=== PATIENT | male | born 1965 | race Caucasian/White ===

== ENCOUNTER 2023-06-19 17:14 | Inpatient (IN) | payer MEDICAID ==
[~2023-06-19] VITALS: Ht 165.1 cm; Wt 48.1 kg
[2023-06-19] MEDS: ALBUTEROL (0.083%) 2.5MG/3ML NEB HHN STA (17:30)
[2023-06-19] MEDS: IPRATROPIUM BROMIDE (0.02%) 0.5MG/2.5ML NEB HHN STA (17:30)
[2023-06-19 17:31] VITALS: RESP 44
[2023-06-19] MEDS: SODIUM CHLORIDE 0.9% 1000ML BAG (SEPSIS BOLUS) IV ONE (17:43)
[2023-06-19] MEDS: MAGNESIUM 2 G PREMIX 50 ML IV ONE (17:53)
[2023-06-19] MEDS: METHYLPREDNISOLONE SOD SUCC 125MG/2ML (ACT-O-VIAL) IV STA (17:53)
[2023-06-19 18:40] LABS: BG BASE EXCESS -16.2 mmol/L (-2.0-2.0); BG CARBOXYHEMOGLOBIN 0.6 % (0.5-1.5); BG DEOXYHEMOGLOBIN 0.1 % (0.0-5.0); BG FRACTION INSPIRED OXYGEN 100; BG METHEMOGLOBIN 0.3 % (0.0-1.5); BG OXYGEN SATURATION 99.9 % (92.0-98.5); BG PCO2 25.2 mmHg (35.0-45.0); BG PH 7.218 (7.350-7.450); BG PO2 293.5 mmHg (75.0-100.0); BG SAMPLE SITE RIGHT BRACHIAL; BG TOTAL HEMOGLOBIN 8.6 g/dL (12.0-18.0); BG TOTAL RESPIRATORY RATE 43 b/min; BG VENT MODE MASK - BIPAP
[2023-06-19 18:48] LABS: MEAN CORPUSCULAR HEMOGLOBIN 24.3 pg (28.0-32.0); MEAN CORPUSCULAR VOLUME 83.9 fL (80.0-94.0); MEAN PLATELET VOLUME 9.3 fl (7.4-10.4); PLATELET 422 x1000/uL (130-400); RED BLOOD CELL COUNT 2.67 mill/uL (4.7-6.1); RED CELL DISTRIBUTION WIDTH 17.6 % (11.6-14.6); WHITE BLOOD COUNT 15.3 x1000/uL (4.5-11.0)
[2023-06-19 18:59] LABS: INR 1.1; PARTIAL THROMBOPLASTIN TIME 35.3 sec (23.4-31.0); PROTHROMBIN TIME 12.2 sec (9.6-11.0)
[2023-06-19 19:01] LABS: DIFFERENTIAL COMMENT 1
[2023-06-19 19:02] LABS: HEMATOCRIT. 22.4 % (42.0-52.0); HEMOGLOBIN. 6.5 g/dL (14.0-18.0)
[2023-06-19 19:03] LABS: ALANINE AMINOTRANSFERASE 13 IU/L (10-49); ALBUMIN 2.9 g/dL (3.2-4.8); ASPARTATE AMINOTRANSFERASE 17 IU/L (<34); BILIRUBIN TOTAL 0.2 mg/dL (0.1-1.0); CALCIUM 8.5 mg/dL (8.7-10.4); CARBON DIOXIDE 11 mEq/L (21-32); CHLORIDE 106 mEq/L (98-107); GLUCOSE 127 mg/dL (70-105); POTASSIUM 4.2 mEq/L (3.5-5.1); PROTEIN TOTAL 6.2 g/dL (6.0-8.3); SODIUM 134 mEq/L (136-145)
[2023-06-19 19:05] LABS: CREATININE 5.6 mg/dL (0.6-1.3); UREA NITROGEN BLOOD 110 mg/dL (9-23)
[2023-06-19 19:06] LABS: TROPONIN I HIGH SENSITIVITY 97 ng/L (3.0-53)
[2023-06-19] MEDS ORDERED: LEVOFLOXACIN 750MG PREMIX 150 ML IV ONE (19:15)
[2023-06-19 19:37] LABS: PLATELET ESTIMATE NORMAL
[2023-06-19 19:40] VITALS: RESP 52
[2023-06-19] MEDS: VANCOMYCIN 1G PREMIX 200 ML IV ONE (19:57)
[2023-06-19 22:18] LABS: TROPONIN I HIGH SENSITIVITY 116 ng/L (3.0-53)
[2023-06-19] MEDS: LEVOFLOXACIN 750MG PREMIX 150 ML IV NR (22:40)
[2023-06-19] MEDS: PROPOFOL 10MG/ML 100ML 100 ML IV STA (22:41)
[2023-06-19 22:53] VITALS: PULSE 111; RESP 16
[2023-06-19 23:31] LABS: BG BASE EXCESS -21.3 mmol/L (-2.0-2.0); BG CARBOXYHEMOGLOBIN 1.6 % (0.5-1.5); BG DEOXYHEMOGLOBIN 5.1 % (0.0-5.0); BG FRACTION INSPIRED OXYGEN 100; BG HCO3 ACT 10.6 mmol/L (22.0-26.0); BG METHEMOGLOBIN 0.4 % (0.0-1.5); BG OXYGEN SATURATION 94.8 % (92.0-98.5); BG OXYHEMOGLOBIN 92.9 % (94.0-97.0); BG PCO2 59.1 mmHg (35.0-45.0); BG PH 6.872 (7.350-7.450); BG PO2 112.3 mmHg (75.0-100.0); BG SAMPLE SITE LEFT RADIAL; BG TOTAL HEMOGLOBIN 7.2 g/dL (12.0-18.0); BG VENT MODE VENT - AC
[2023-06-19] MEDS: NOREPINEPHRINE 8MG/250ML PMX 250 ML IV NR (23:46)
[2023-06-20] VITALS (99 sets, daily range): BP systolic 86–125; BP diastolic 61–94; PULSE 90–111; RESP 11–37; TEMP 96.4–98.8
[2023-06-20] MEDS: SODIUM BICARBONATE 100 MEQ in DEXTROSE 5% WATER 1,000 ML IV SCH ×2 (01:38→11:49)
[2023-06-20] MEDS ORDERED: PROPOFOL 10MG/ML 100ML 100 ML IV PRN (03:30)
[2023-06-20] MEDS: SODIUM BICARBONATE 8.4% 1 MEQ/ML 50ML SYR IV NR (03:36)
[2023-06-20 05:39] LABS: BG BASE EXCESS -10.8 mmol/L (-2.0-2.0); BG CARBOXYHEMOGLOBIN 1.1 % (0.5-1.5); BG DEOXYHEMOGLOBIN 3.3 % (0.0-5.0); BG FRACTION INSPIRED OXYGEN 100; BG OXYGEN SATURATION 96.7 % (92.0-98.5); BG OXYHEMOGLOBIN 95.6 % (94.0-97.0); BG PCO2 54.7 mmHg (35.0-45.0); BG PH 7.134 (7.350-7.450); BG PO2 95.2 mmHg (75.0-100.0); BG SAMPLE SITE RIGHT RADIAL; BG TOTAL HEMOGLOBIN 9.2 g/dL (12.0-18.0); BG VENT MODE VENT - AC
[2023-06-20 08:48] LABS: CLARITY URINE CLOUDY (CLEAR); COLOR URINE YELLOW (YELLOW); GLUCOSE URINE TRACE (NEGATIVE); KETONES URINE NEGATIVE (NEGATIVE); LEUKOCYTE ESTERASE URINE 3+ (NEGATIVE); NITRITE URINE NEGATIVE (NEGATIVE); OCCULT BLOOD URINE 2+ (NEGATIVE); PH URINE 5.5 (4.5-8.0); PROTEIN URINE 1+ (NEGATIVE); UROBILINOGEN URINE 0.2 E.U./dL (0.2-1.0)
[2023-06-20] MEDS ORDERED: LEVOFLOXACIN 750MG PREMIX 150 ML IV NR (09:00)
[2023-06-20] MEDS: PROPOFOL 10MG/ML 100ML 100 ML IV PRN (09:07)
[2023-06-20 10:04] LABS: SQUAMOUS EPITHELIAL CELL URINE FEW /lpf (RARE/1+); WBC URINE TNTC /hpf (0-2)
[2023-06-20 10:05] LABS: BACTERIA URINE 1+; YEAST URINE NONE SEEN
[2023-06-20 10:24] LABS: HEMATOCRIT. 22.8 % (42.0-52.0); HEMOGLOBIN. 7.1 g/dL (14.0-18.0); MEAN CORPUSCULAR HEMOGLOBIN 25.4 pg (28.0-32.0); MEAN CORPUSCULAR HGB CONC 31.1 g/dL (31.0-37.0); MEAN CORPUSCULAR VOLUME 81.6 fL (80.0-94.0); MEAN PLATELET VOLUME 9.4 fl (7.4-10.4); PLATELET 399 x1000/uL (130-400); RED CELL DISTRIBUTION WIDTH 17.9 % (11.6-14.6); WHITE BLOOD COUNT 19.4 x1000/uL (4.5-11.0)
[2023-06-20 10:37] LABS: DIFFERENTIAL COMMENT 1
[2023-06-20] MEDS ORDERED: IPRATROPIUM/ALBUTEROL 0.5-3(2.5)MG/3ML NEB HHN PRN (10:45)
[2023-06-20 10:58] LABS: CALCIUM 8.6 mg/dL (8.7-10.4); CREATININE 4.5 mg/dL (0.6-1.3); POTASSIUM 3.6 mEq/L (3.5-5.1)
[2023-06-20] MEDS ORDERED: PANTOPRAZOLE SODIUM 40 MG/VIAL IV SCH (11:00)
[2023-06-20] MEDS: METHYLPREDNISOLONE SOD SUCC 125MG/2ML (ACT-O-VIAL) IV SCH (11:48)
[2023-06-20] MEDS: PANTOPRAZOLE SODIUM 40 MG/VIAL IV SCH (11:49)
[2023-06-20 14:11] LABS: ANISOCYTOSIS 1+; PLATELET ESTIMATE NORMAL; TARGET CELLS FEW
[2023-06-20] MEDS: IPRATROPIUM/ALBUTEROL 0.5-3(2.5)MG/3ML NEB HHN SCH (14:15)
[2023-06-20] MEDS: ACETYLCYSTEINE 200MG/ML 20% VIAL 4ML INH SCH (14:16)
[2023-06-20 16:53] LABS: *AMPHETAMINES SCREEN URINE NEGATIVE (NEGATIVE); *BARBITURATES SCREEN URINE NEGATIVE (NEGATIVE); *BENZODIAZEPINES SCREEN URINE NEGATIVE (NEGATIVE); *COCAINE SCREEN URINE NEGATIVE (NEGATIVE); CANNABINOID URINE SCREEN NEGATIVE (NEGATIVE); ECSTASY MDMA SCREEN URINE NEGATIVE (NEGATIVE); METHADONE URINE SCREEN Neg (NEGATIVE); OPIATES URINE SCREEN NEGATIVE (NEGATIVE); PHENCYCLIDINE URINE SCREEN NEGATIVE (NEGATIVE)
[2023-06-21] VITALS (79 sets, daily range): BP systolic 85–143; BP diastolic 57–81; PULSE 67–99; RESP 12–51; TEMP 97.7–99.2
[2023-06-21 05:48] LABS: HEMATOCRIT. 23.8 % (42.0-52.0); HEMOGLOBIN. 7.2 g/dL (14.0-18.0); MEAN CORPUSCULAR VOLUME 83.3 fL (80.0-94.0); MEAN PLATELET VOLUME 9.5 fl (7.4-10.4); PLATELET 271 x1000/uL (130-400); RED BLOOD CELL COUNT 2.86 mill/uL (4.7-6.1)
[2023-06-21 06:11] LABS: ALBUMIN 2.7 g/dL (3.2-4.8); CALCIUM 8.4 mg/dL (8.7-10.4); CARBON DIOXIDE 28 mEq/L (21-32); CHLORIDE 103 mEq/L (98-107); CREATININE 3.6 mg/dL (0.6-1.3); GLUCOSE 152 mg/dL (70-105); PHOSPHORUS 6.6 mg/dL (2.5-4.9); POTASSIUM 3.1 mEq/L (3.5-5.1); SODIUM 144 mEq/L (136-145); TRIGLYCERIDE 256 mg/dL (0-150); UREA NITROGEN BLOOD 93 mg/dL (9-23)
[2023-06-21 06:22] LABS: PREALBUMIN < 5.0 mg/dl (10.0-40.0)
[2023-06-21 06:27] LABS: PROTHROMBIN TIME 11.6 sec (9.6-11.0)
[2023-06-21 06:39] LABS: DIFFERENTIAL COMMENT 1
[2023-06-21 09:01] LABS: BG BASE EXCESS 4.2 mmol/L (-2.0-2.0); BG CARBOXYHEMOGLOBIN 0.3 % (0.5-1.5); BG DEOXYHEMOGLOBIN 1.5 % (0.0-5.0); BG FRACTION INSPIRED OXYGEN 70; BG HCO3 ACT 27.2 mmol/L (22.0-26.0); BG METHEMOGLOBIN 0.3 % (0.0-1.5); BG OXYGEN SATURATION 98.5 % (92.0-98.5); BG OXYHEMOGLOBIN 97.9 % (94.0-97.0); BG PCO2 34.1 mmHg (35.0-45.0); BG PO2 125.7 mmHg (75.0-100.0); BG SAMPLE SITE LEFT RADIAL; BG TOTAL HEMOGLOBIN 8.6 g/dL (12.0-18.0); BG TOTAL RESPIRATORY RATE 34 b/min; BG VENT MODE VENT - AC
[2023-06-21 09:32] LABS: CREATINE KINASE 41 IU/L (46-171); IRON 20 ug/dL (65-175); TOTAL IRON BINDING CAPACITY 286 ug/dl (250-425)
[2023-06-21] MEDS: LEVOFLOXACIN 500MG PREMIX 100 ML IV SCH (09:45)
[2023-06-21] MEDS: POTASSIUM CHLORIDE 20MEQ/PACKET PO NR (09:45)
[2023-06-21] MEDS: QUETIAPINE FUMARATE 25MG TABLET PO SCH (09:46)
[2023-06-21] MEDS: VANCOMYCIN 1G PREMIX 200 ML IV NR (09:48)
[2023-06-21] MEDS: DEXT 5%/0.45% NACL 1000ML 1,000 ML IV SCH (09:49)
[2023-06-21 11:57] LABS: ANISOCYTOSIS 2+; PLATELET ESTIMATE NORMAL
[2023-06-21] MEDS: PROPOFOL 10MG/ML 100ML 100 ML IV PRN (14:17)
[2023-06-22] VITALS (104 sets, daily range): BP systolic 90–167; BP diastolic 59–94; PULSE 58–122; RESP 14–34; TEMP 96.4–97.8
[2023-06-22] MEDS ORDERED: FENTANYL 2500MCG/250ML PMX 250 ML IV ONE (00:15)
[2023-06-22] MEDS: FENTANYL CITRATE 2,500 MCG in SODIUM CHLORIDE 0.9% 200 ML IV PRN (00:27)
[2023-06-22 05:39] LABS: MEAN CORPUSCULAR HEMOGLOBIN 25.7 pg (28.0-32.0); MEAN CORPUSCULAR HGB CONC 31.8 g/dL (31.0-37.0); MEAN CORPUSCULAR VOLUME 80.8 fL (80.0-94.0); MEAN PLATELET VOLUME 9.8 fl (7.4-10.4); PLATELET 281 x1000/uL (130-400); RED BLOOD CELL COUNT 2.42 mill/uL (4.7-6.1); RED CELL DISTRIBUTION WIDTH 18.2 % (11.6-14.6); WHITE BLOOD COUNT 9.9 x1000/uL (4.5-11.0)
[2023-06-22 05:54] LABS: CARBON DIOXIDE 29 mEq/L (21-32); CHLORIDE 106 mEq/L (98-107); GLUCOSE 197 mg/dL (70-105); PHOSPHORUS 4.6 mg/dL (2.5-4.9); POTASSIUM 2.9 mEq/L (3.5-5.1); SODIUM 145 mEq/L (136-145); TRIGLYCERIDE 328 mg/dL (0-150); UREA NITROGEN BLOOD 85 mg/dL (9-23)
[2023-06-22 05:56] LABS: CREATININE 2.4 mg/dL (0.6-1.3)
[2023-06-22 07:14] LABS: DIFFERENTIAL COMMENT 1; HEMOGLOBIN. 6.2 g/dL (14.0-18.0)
[2023-06-22 07:15] LABS: HEMATOCRIT. 19.6 % (42.0-52.0)
[2023-06-22 09:07] LABS: FOLIC ACID (FOLATE) SERUM 10.41 ng/mL (>5.38); VITAMIN B12 SERUM 949 pg/mL (211-911)
[2023-06-22 09:08] LABS: BG BASE EXCESS 0.7 mmol/L (-2.0-2.0); BG CARBOXYHEMOGLOBIN 1.7 % (0.5-1.5); BG DEOXYHEMOGLOBIN 3.7 % (0.0-5.0); BG FRACTION INSPIRED OXYGEN 40; BG HCO3 ACT 25.6 mmol/L (22.0-26.0); BG OXYGEN SATURATION 96.2 % (92.0-98.5); BG OXYHEMOGLOBIN 94.6 % (94.0-97.0); BG PCO2 42.1 mmHg (35.0-45.0); BG PH 7.401 (7.350-7.450); BG PO2 89.1 mmHg (75.0-100.0); BG SAMPLE SITE RIGHT RADIAL; BG TOTAL HEMOGLOBIN 6.7 g/dL (12.0-18.0); BG TOTAL RESPIRATORY RATE 500 b/min; BG VENT MODE VENT - AC
[2023-06-22] MEDS: PROPOFOL 10MG/ML 100ML 100 ML IV PRN (09:27)
[2023-06-22 09:45] LABS: MICROCYTOSIS 1+; PLATELET ESTIMATE NORMAL
[2023-06-22 09:46] LABS: ANISOCYTOSIS 2+
[2023-06-22] MEDS: VANCOMYCIN 750MG PREMIX 150 ML IV NR (10:40)
[2023-06-22] MEDS: POTASSIUM CHLORIDE 20MEQ TABLET SR PO NR (10:41)
[2023-06-22 11:45] LABS: HEMATOCRIT 22.4 % (42.0-52.0); HEMOGLOBIN 7.2 g/dL (14.0-18.0)
[2023-06-22] MEDS: LEVOFLOXACIN 750MG PREMIX 150 ML IV SCH (20:49)
[2023-06-23] VITALS (102 sets, daily range): BP systolic 91–128; BP diastolic 62–97; PULSE 50–82; RESP 18–26; TEMP 96.7–98.7
[2023-06-23 05:38] LABS: HEMATOCRIT. 23.2 % (42.0-52.0); HEMOGLOBIN. 7.1 g/dL (14.0-18.0); MEAN CORPUSCULAR HEMOGLOBIN 25.9 pg (28.0-32.0); MEAN CORPUSCULAR HGB CONC 30.4 g/dL (31.0-37.0); MEAN CORPUSCULAR VOLUME 85.3 fL (80.0-94.0); MEAN PLATELET VOLUME 9.7 fl (7.4-10.4); PLATELET 281 x1000/uL (130-400); RED BLOOD CELL COUNT 2.72 mill/uL (4.7-6.1); RED CELL DISTRIBUTION WIDTH 18.6 % (11.6-14.6); WHITE BLOOD COUNT 14.1 x1000/uL (4.5-11.0)
[2023-06-23 05:50] LABS: CALCIUM 7.9 mg/dL (8.7-10.4); CREATININE 1.8 mg/dL (0.6-1.3); POTASSIUM 3.4 mEq/L (3.5-5.1)
[2023-06-23 05:58] LABS: DIFFERENTIAL COMMENT 1
[2023-06-23 08:49] LABS: BG BASE EXCESS 5.2 mmol/L (-2.0-2.0); BG CARBOXYHEMOGLOBIN 1.1 % (0.5-1.5); BG DEOXYHEMOGLOBIN 3.1 % (0.0-5.0); BG FRACTION INSPIRED OXYGEN 40; BG HCO3 ACT 30.3 mmol/L (22.0-26.0); BG METHEMOGLOBIN 0.3 % (0.0-1.5); BG OXYGEN SATURATION 96.9 % (92.0-98.5); BG OXYHEMOGLOBIN 95.5 % (94.0-97.0); BG PCO2 47.3 mmHg (35.0-45.0); BG PH 7.425 (7.350-7.450); BG SAMPLE SITE RIGHT BRACHIAL; BG TOTAL HEMOGLOBIN 10.6 g/dL (12.0-18.0); BG VENT MODE VENT - AC
[2023-06-23] MEDS: POLYETHYLENE GLYCOL 3350 (17GM) 1 DOSE PACK NG SCH (09:00)
[2023-06-23] MEDS: POTASSIUM CHLORIDE 20MEQ/PACKET PO NR (09:00)
[2023-06-23] MEDS: VANCOMYCIN 1G PREMIX 200 ML IV SCH (11:06)
[2023-06-23] MEDS: PROPOFOL 10MG/ML 100ML 100 ML IV PRN (12:41)
[2023-06-23] MEDS ORDERED: MIDAZOLAM HCL 2 MG/2 ML VIAL IV PRN (13:30)
[2023-06-23] MEDS: DOCUSATE SODIUM SUGAR FREE 100MG/10ML UDC NG NR (14:46)
[2023-06-23 15:54] LABS: ANISOCYTOSIS 1+; PLATELET ESTIMATE NORMAL
[2023-06-23] MEDS: IRON SUCROSE COMPLEX 100 MG/5 ML ML IV SCH (15:56)
[2023-06-23] MEDS: MEROPENEM 1G/100ML 100 ML IV SCH (18:12)
[2023-06-23] MEDS: METHYLPREDNISOLONE SOD SUCC 125MG/2ML (ACT-O-VIAL) IV SCH (18:13)
[2023-06-24] VITALS (96 sets, daily range): BP systolic 93–168; BP diastolic 63–103; PULSE 49–108; RESP 17–40; TEMP 96.8–98.8; O2SAT 98–100
[2023-06-24 05:36] LABS: HEMATOCRIT. 27.9 % (42.0-52.0); MEAN CORPUSCULAR HEMOGLOBIN 27.2 pg (28.0-32.0); MEAN CORPUSCULAR HGB CONC 32.4 g/dL (31.0-37.0); MEAN PLATELET VOLUME 9.6 fl (7.4-10.4); PLATELET 290 x1000/uL (130-400); RED BLOOD CELL COUNT 3.32 mill/uL (4.7-6.1); RED CELL DISTRIBUTION WIDTH 17.7 % (11.6-14.6); WHITE BLOOD COUNT 10.1 x1000/uL (4.5-11.0)
[2023-06-24 05:50] LABS: CALCIUM 7.9 mg/dL (8.7-10.4); CARBON DIOXIDE 31 mEq/L (21-32); CHLORIDE 108 mEq/L (98-107); CREATININE 1.4 mg/dL (0.6-1.3); GLUCOSE 147 mg/dL (70-105); PHOSPHORUS 2.6 mg/dL (2.5-4.9); POTASSIUM 3.5 mEq/L (3.5-5.1); SODIUM 144 mEq/L (136-145); TRIGLYCERIDE 282 mg/dL (0-150); UREA NITROGEN BLOOD 52 mg/dL (9-23)
[2023-06-24] MEDS: SENNOSIDES 8.6MG TABLET PO PRN (06:04)
[2023-06-24 06:19] LABS: DIFFERENTIAL COMMENT 1
[2023-06-24] MEDS: QUETIAPINE FUMARATE 50MG TABLET PO SCH (09:00)
[2023-06-24 10:14] LABS: BG BASE EXCESS 2.2 mmol/L (-2.0-2.0); BG CARBOXYHEMOGLOBIN 0.2 % (0.5-1.5); BG DEOXYHEMOGLOBIN 3.2 % (0.0-5.0); BG FRACTION INSPIRED OXYGEN 40; BG HCO3 ACT 27.1 mmol/L (22.0-26.0); BG METHEMOGLOBIN 0.3 % (0.0-1.5); BG OXYGEN SATURATION 96.8 % (92.0-98.5); BG OXYHEMOGLOBIN 96.3 % (94.0-97.0); BG PCO2 43.3 mmHg (35.0-45.0); BG PH 7.414 (7.350-7.450); BG PO2 88.4 mmHg (75.0-100.0); BG SAMPLE SITE RIGHT BRACHIAL; BG TOTAL HEMOGLOBIN 11.3 g/dL (12.0-18.0); BG VENT MODE VENT - CPAP
[2023-06-24 10:22] LABS: ANISOCYTOSIS 2+; PLATELET ESTIMATE NORMAL
[2023-06-24] MEDS ORDERED: RACEPINEPHRINE 2.25% 0.5ML NEB VIAL HHN PRN (10:45)
[2023-06-24 10:50] LABS: PROTHROMBIN TIME 11.6 sec (9.6-11.0)
[2023-06-24] MEDS: METHYLPREDNISOLONE SOD SUCC 125MG/2ML (ACT-O-VIAL) IV SCH (10:51)
[2023-06-24] MEDS: VANCOMYCIN 750MG PREMIX 150 ML IV SCH (10:51)
[2023-06-25] VITALS (54 sets, daily range): BP systolic 107–138; BP diastolic 76–91; PULSE 85–114; RESP 13–32; TEMP 98.3–98.7; O2SAT 97–99
[2023-06-25 05:24] LABS: HEMATOCRIT. 32.1 % (42.0-52.0); HEMOGLOBIN. 10.4 g/dL (14.0-18.0); MEAN CORPUSCULAR HEMOGLOBIN 26.6 pg (28.0-32.0); MEAN CORPUSCULAR HGB CONC 32.4 g/dL (31.0-37.0); MEAN CORPUSCULAR VOLUME 82.1 fL (80.0-94.0); MEAN PLATELET VOLUME 9.4 fl (7.4-10.4); PLATELET 297 x1000/uL (130-400); RED BLOOD CELL COUNT 3.91 mill/uL (4.7-6.1); RED CELL DISTRIBUTION WIDTH 18.1 % (11.6-14.6); WHITE BLOOD COUNT 14.9 x1000/uL (4.5-11.0)
[2023-06-25 05:30] LABS: DIFFERENTIAL COMMENT 1
[2023-06-25 06:03] LABS: CARBON DIOXIDE 30 mEq/L (21-32); CHLORIDE 105 mEq/L (98-107); CREATININE 1.2 mg/dL (0.6-1.3); GLUCOSE 84 mg/dL (70-105); PHOSPHORUS 2.2 mg/dL (2.5-4.9); POTASSIUM 3.8 mEq/L (3.5-5.1); SODIUM 142 mEq/L (136-145); UREA NITROGEN BLOOD 48 mg/dL (9-23)
[2023-06-25 06:41] LABS: CALCIUM 7.7 mg/dL (8.7-10.4)
[2023-06-25 09:30] LABS: ANISOCYTOSIS 1+; PLATELET ESTIMATE NORMAL
[2023-06-25] MEDS: MAGNESIUM 4 G PREMIX 100 ML IV NR (10:32)
[2023-06-25] MEDS: POTASSIUM PHOSPHATE 20 MMOL in DEXT 5% WATER 243.3333 ML IV NR (10:32)
[2023-06-25] MEDS: METHYLPREDNISOLONE SOD SUCC 125MG/2ML (ACT-O-VIAL) IV SCH (18:35)
[2023-06-25] MEDS: ZOLPIDEM TARTRATE 5MG TABLET PO PRN (20:10)
[2023-06-25] MEDS: LEVOFLOXACIN 750MG PREMIX 150 ML IV SCH (20:10)
[2023-06-26] VITALS (74 sets, daily range): BP systolic 93–140; BP diastolic 64–94; PULSE 97–126; RESP 18–34; TEMP 98–99
[2023-06-26 05:41] LABS: HEMATOCRIT. 33.7 % (42.0-52.0); HEMOGLOBIN. 10.9 g/dL (14.0-18.0); MEAN CORPUSCULAR HEMOGLOBIN 26.6 pg (28.0-32.0); MEAN CORPUSCULAR HGB CONC 32.2 g/dL (31.0-37.0); MEAN CORPUSCULAR VOLUME 82.6 fL (80.0-94.0); MEAN PLATELET VOLUME 9.9 fl (7.4-10.4); PLATELET 293 x1000/uL (130-400); RED BLOOD CELL COUNT 4.08 mill/uL (4.7-6.1); RED CELL DISTRIBUTION WIDTH 18.4 % (11.6-14.6); WHITE BLOOD COUNT 13.4 x1000/uL (4.5-11.0)
[2023-06-26 06:02] LABS: CALCIUM 8.1 mg/dL (8.7-10.4); CARBON DIOXIDE 29 mEq/L (21-32); CHLORIDE 103 mEq/L (98-107); CREATININE 1.2 mg/dL (0.6-1.3); GLUCOSE 104 mg/dL (70-105); PHOSPHORUS 2.6 mg/dL (2.5-4.9); POTASSIUM 4.2 mEq/L (3.5-5.1); SODIUM 139 mEq/L (136-145); UREA NITROGEN BLOOD 50 mg/dL (9-23)
[2023-06-26 06:42] LABS: DIFFERENTIAL COMMENT 1
[2023-06-26 10:32] LABS: ANISOCYTOSIS 1+; PLATELET ESTIMATE NORMAL
[2023-06-26] MEDS: MEROPENEM 1G/100ML IV SCH (13:51)
[2023-06-27] VITALS (34 sets, daily range): BP systolic 93–119; BP diastolic 63–94; PULSE 108–128; RESP 19–33; TEMP 97.9–100
[2023-06-27 05:18] LABS: HEMATOCRIT. 34.4 % (42.0-52.0); HEMOGLOBIN. 10.9 g/dL (14.0-18.0); MEAN CORPUSCULAR HGB CONC 31.8 g/dL (31.0-37.0); MEAN CORPUSCULAR VOLUME 84.9 fL (80.0-94.0); MEAN PLATELET VOLUME 10.2 fl (7.4-10.4); PLATELET 324 x1000/uL (130-400); RED BLOOD CELL COUNT 4.05 mill/uL (4.7-6.1); RED CELL DISTRIBUTION WIDTH 18.3 % (11.6-14.6); WHITE BLOOD COUNT 12.1 x1000/uL (4.5-11.0)
[2023-06-27 05:51] LABS: CALCIUM 8.4 mg/dL (8.7-10.4); CARBON DIOXIDE 26 mEq/L (21-32); CHLORIDE 105 mEq/L (98-107); CREATININE 1.1 mg/dL (0.6-1.3); GLUCOSE 112 mg/dL (70-105); POTASSIUM 4.6 mEq/L (3.5-5.1); SODIUM 137 mEq/L (136-145); UREA NITROGEN BLOOD 56 mg/dL (9-23)
[2023-06-27 06:40] LABS: DIFFERENTIAL COMMENT 1
[2023-06-27 10:11] LABS: PLATELET ESTIMATE NORMAL
[2023-06-27 10:12] LABS: ANISOCYTOSIS 2+
[2023-06-27] MEDS ORDERED: SODIUM CHLORIDE 0.9% 250 ML IV NR (10:45)
[2023-06-27] MEDS ORDERED: MAGNESIUM 2 G PREMIX 50 ML IV ONE (10:45)
[2023-06-27] MEDS: DILTIAZEM HCL 30MG TABLET PO SCH (13:06)
[2023-06-27] MEDS: MAGNESIUM 2 G PREMIX 50 ML IV NR (13:06)
[2023-06-27] MEDS: POLYVINYL ALCOHOL OPHTH DROPS 15ML BOTHEYE SCH (18:00)
[2023-06-27] MEDS: METHYLPREDNISOLONE SOD SUCC 40MG/ML (ACT-O-VIAL) IV SCH (21:09)
[2023-06-28] MEDS: FINASTERIDE 5MG TABLET PO SCH (12:11)
[2023-06-28] MEDS: TAMSULOSIN HCL 0.4MG SR CAPSULE PO SCH (12:11)
[2023-06-28 13:08] LABS: HEMATOCRIT. 36.5 % (42.0-52.0); HEMOGLOBIN. 11.5 g/dL (14.0-18.0); MEAN CORPUSCULAR HEMOGLOBIN 26.4 pg (28.0-32.0); MEAN CORPUSCULAR HGB CONC 31.6 g/dL (31.0-37.0); MEAN CORPUSCULAR VOLUME 83.7 fL (80.0-94.0); PLATELET 339 x1000/uL (130-400); RED BLOOD CELL COUNT 4.35 mill/uL (4.7-6.1); RED CELL DISTRIBUTION WIDTH 19.2 % (11.6-14.6); WHITE BLOOD COUNT 17.3 x1000/uL (4.5-11.0)
[2023-06-28 13:12] LABS: DIFFERENTIAL COMMENT 1
[2023-06-28 14:13] LABS: CALCIUM 8.3 mg/dL (8.7-10.4); CARBON DIOXIDE 23 mEq/L (21-32); CHLORIDE 104 mEq/L (98-107); GLUCOSE 77 mg/dL (70-105); PHOSPHORUS 3.6 mg/dL (2.5-4.9); POTASSIUM 4.5 mEq/L (3.5-5.1); SODIUM 138 mEq/L (136-145); UREA NITROGEN BLOOD 70 mg/dL (9-23)
[2023-06-28 14:23] LABS: ANISOCYTOSIS 1+; MICROCYTOSIS 1+; PLATELET ESTIMATE NORMAL
[2023-06-28 14:37] LABS: CREATININE 1.9 mg/dL (0.6-1.3)
[2023-06-28 16:00] VITALS: BP 105/54; PULSE 124; RESP 22; TEMP 98.3
[2023-06-28 20:00] VITALS: BP 96/51; PULSE 120; TEMP 99.3
[2023-06-28] MEDS: MAGNESIUM 2 G PREMIX 50 ML IV NR (21:16)
[2023-06-29] VITALS: BP 115/60; PULSE 104; RESP 20; TEMP 99.4
[2023-06-29 04:00] VITALS: BP 111/64; PULSE 119; RESP 20; TEMP 97.9
[2023-06-29 07:24] LABS: EOSINOPHILS % 0.1 % (0.0-5.0); HEMATOCRIT. 31.9 % (42.0-52.0); HEMOGLOBIN. 10.4 g/dL (14.0-18.0); LYMPHOCYTES % 7.5 % (20.0-50.0); MEAN CORPUSCULAR HEMOGLOBIN 27.6 pg (28.0-32.0); MEAN CORPUSCULAR HGB CONC 32.5 g/dL (31.0-37.0); MEAN CORPUSCULAR VOLUME 84.9 fL (80.0-94.0); MEAN PLATELET VOLUME 10.3 fl (7.4-10.4); NEUTROPHILS % 82.4 % (40.0-76.0); PLATELET 311 x1000/uL (130-400); RED BLOOD CELL COUNT 3.76 mill/uL (4.7-6.1); RED CELL DISTRIBUTION WIDTH 19.6 % (11.6-14.6); WHITE BLOOD COUNT 10.7 x1000/uL (4.5-11.0)
[2023-06-29 07:53] LABS: CALCIUM 7.8 mg/dL (8.7-10.4); CARBON DIOXIDE 25 mEq/L (21-32); CHLORIDE 106 mEq/L (98-107); CREATININE 1.3 mg/dL (0.6-1.3); GLUCOSE 106 mg/dL (70-105); PHOSPHORUS 2.8 mg/dL (2.5-4.9); POTASSIUM 4.1 mEq/L (3.5-5.1); SODIUM 138 mEq/L (136-145); UREA NITROGEN BLOOD 61 mg/dL (9-23)
[2023-06-29 08:00] VITALS: BP 108/64; PULSE 108; RESP 19; TEMP 97.5
[2023-06-29 12:00] VITALS: BP 90/59; PULSE 109; RESP 19; TEMP 97.7
[2023-06-29 20:00] VITALS: BP 95/63; PULSE 123; RESP 19; TEMP 98.2
[2023-06-30] VITALS: BP 114/61; PULSE 113; RESP 22; TEMP 98.1
[2023-06-30 04:00] VITALS: BP 110/63; PULSE 104; RESP 20; TEMP 96.2
[2023-06-30] MEDS: PANTOPRAZOLE 40MG DR TABLET PO SCH (06:02)
[2023-06-30] MEDS ORDERED: PANTOPRAZOLE 40MG DR TABLET PO SCH (06:40)
[2023-06-30 08:17] VITALS: BP 96/61; PULSE 103; RESP 18; TEMP 98.9
[2023-06-30 10:20] LABS: BASOPHILS % 0.2 % (0.0-2.0); EOSINOPHILS % 0.6 % (0.0-5.0); HEMATOCRIT. 33.5 % (42.0-52.0); HEMOGLOBIN. 10.5 g/dL (14.0-18.0); LYMPHOCYTES % 13.1 % (20.0-50.0); MEAN CORPUSCULAR HEMOGLOBIN 26.7 pg (28.0-32.0); MEAN CORPUSCULAR HGB CONC 31.5 g/dL (31.0-37.0); MEAN CORPUSCULAR VOLUME 84.7 fL (80.0-94.0); MEAN PLATELET VOLUME 9.9 fl (7.4-10.4); MONOCYTES % 12.4 % (2.0-8.0); NEUTROPHILS % 73.7 % (40.0-76.0); PLATELET 292 x1000/uL (130-400); RED BLOOD CELL COUNT 3.95 mill/uL (4.7-6.1); RED CELL DISTRIBUTION WIDTH 20.2 % (11.6-14.6); WHITE BLOOD COUNT 9.3 x1000/uL (4.5-11.0)
[2023-06-30 10:29] LABS: CALCIUM 7.6 mg/dL (8.7-10.4); CARBON DIOXIDE 28 mEq/L (21-32); CHLORIDE 105 mEq/L (98-107); GLUCOSE 103 mg/dL (70-105); PHOSPHORUS 2.1 mg/dL (2.5-4.9); POTASSIUM 3.8 mEq/L (3.5-5.1); SODIUM 138 mEq/L (136-145); UREA NITROGEN BLOOD 45 mg/dL (9-23)
[2023-06-30] MEDS: MULTIVITAMINS,THER W-MINERALS TABLET PO SCH (13:42)
[2023-06-30] MEDS: ZINC SULFATE 220 MG ( 50 ) CAPSULE PO SCH (13:45)
[2023-06-30] MEDS: ASCORBIC ACID 500 MG TABLET PO SCH (13:53)
[2023-06-30 16:00] VITALS: BP 145/96; PULSE 105; RESP 20; TEMP 98.7
[2023-06-30] MEDS: MAGNESIUM 1 G PREMIX 100 ML IV SCH (17:50)
[2023-06-30 20:00] VITALS: BP 109/64; PULSE 111; RESP 18; TEMP 99.5
[2023-06-30] MEDS: QUETIAPINE FUMARATE 50MG TABLET PO SCH (22:01)
[2023-07-01] VITALS: BP 102/66; PULSE 110; RESP 18; TEMP 99.5
[2023-07-01] MEDS: METHYLPREDNISOLONE SOD SUCC 40MG/ML (ACT-O-VIAL) IV SCH (02:39)
[2023-07-01 04:00] VITALS: BP 98/59; PULSE 103; RESP 18; TEMP 97.5
[2023-07-01 06:22] LABS: HEMATOCRIT. 30.4 % (42.0-52.0); HEMOGLOBIN. 9.8 g/dL (14.0-18.0); MEAN CORPUSCULAR HEMOGLOBIN 26.9 pg (28.0-32.0); MEAN CORPUSCULAR HGB CONC 32.1 g/dL (31.0-37.0); MEAN CORPUSCULAR VOLUME 83.6 fL (80.0-94.0); MEAN PLATELET VOLUME 9.8 fl (7.4-10.4); PLATELET 293 x1000/uL (130-400); RED BLOOD CELL COUNT 3.64 mill/uL (4.7-6.1); RED CELL DISTRIBUTION WIDTH 20.3 % (11.6-14.6); WHITE BLOOD COUNT 10.1 x1000/uL (4.5-11.0)
[2023-07-01 06:56] LABS: DIFFERENTIAL COMMENT 1
[2023-07-01 07:01] LABS: CALCIUM 7.6 mg/dL (8.7-10.4); CARBON DIOXIDE 25 mEq/L (21-32); CHLORIDE 106 mEq/L (98-107); CREATININE 0.9 mg/dL (0.6-1.3); GLUCOSE 104 mg/dL (70-105); PHOSPHORUS 2.2 mg/dL (2.5-4.9); POTASSIUM 4.3 mEq/L (3.5-5.1); SODIUM 139 mEq/L (136-145); UREA NITROGEN BLOOD 42 mg/dL (9-23)
[2023-07-01 08:00] VITALS: BP 98/58; PULSE 98; RESP 20; TEMP 98.9
[2023-07-01 12:00] VITALS: BP 103/61; PULSE 114; RESP 20; TEMP 98.7
[2023-07-01] MEDS ORDERED: SODIUM PHOSPHATE 20 MMOL in DEXT 5% WATER 243.3333 ML IV NR (14:00)
[2023-07-01] MEDS: MAGNESIUM 2 G PREMIX 50 ML IV SCH (14:02)
[2023-07-01 16:00] VITALS: BP 96/55; PULSE 109; RESP 20; TEMP 97.8
[2023-07-02 04:00] VITALS: BP 100/71; PULSE 72; RESP 19; TEMP 98.4
[2023-07-02 05:00] LABS: PLATELET ESTIMATE NORMAL
[2023-07-02 08:00] VITALS: BP 105/53; PULSE 103; RESP 18; TEMP 97.7
[2023-07-02 12:00] VITALS: BP_SYST 105; BP_SYST 107; BP_DIAS 53; BP_DIAS 69; PULSE 100; PULSE 103; RESP 19; RESP 20; TEMP 97.6; TEMP 97.7
[2023-07-02 12:03] LABS: CALCIUM 8.1 mg/dL (8.7-10.4); CARBON DIOXIDE 26 mEq/L (21-32); CHLORIDE 104 mEq/L (98-107); GLUCOSE 112 mg/dL (70-105); POTASSIUM 4.4 mEq/L (3.5-5.1); SODIUM 136 mEq/L (136-145); UREA NITROGEN BLOOD 56 mg/dL (9-23)
[2023-07-02 12:07] LABS: PHOSPHORUS 0.9 mg/dL (2.5-4.9)
[2023-07-02 16:00] VITALS: BP 115/59; PULSE 118; RESP 20; TEMP 98.2
[2023-07-02] MEDS: SODIUM PHOSPHATE 30 MMOL in DEXT 5% WATER 500 ML IV NR (17:15)
[2023-07-02 20:00] VITALS: BP 114/69; PULSE 115; RESP 17; TEMP 98.1
[2023-07-03] VITALS: BP 106/60; PULSE 113; RESP 18; TEMP 97.3
[2023-07-03] MEDS: GUAIFENESIN 600MG ER TABLET PO SCH (00:56)
[2023-07-03 04:00] VITALS: BP 116/72; PULSE 106; RESP 18; TEMP 98.6
[2023-07-03 07:09] LABS: HEMATOCRIT. 29.8 % (42.0-52.0); HEMOGLOBIN. 9.6 g/dL (14.0-18.0); MEAN CORPUSCULAR HEMOGLOBIN 27.1 pg (28.0-32.0); MEAN CORPUSCULAR HGB CONC 32.1 g/dL (31.0-37.0); MEAN CORPUSCULAR VOLUME 84.3 fL (80.0-94.0); MEAN PLATELET VOLUME 9.7 fl (7.4-10.4); PLATELET 302 x1000/uL (130-400); RED BLOOD CELL COUNT 3.54 mill/uL (4.7-6.1); RED CELL DISTRIBUTION WIDTH 20.8 % (11.6-14.6); WHITE BLOOD COUNT 14.2 x1000/uL (4.5-11.0)
[2023-07-03 07:21] LABS: DIFFERENTIAL COMMENT 1
[2023-07-03 07:30] LABS: CALCIUM 7.8 mg/dL (8.7-10.4); CARBON DIOXIDE 31 mEq/L (21-32); CHLORIDE 104 mEq/L (98-107); CREATININE 0.8 mg/dL (0.6-1.3); GLUCOSE 147 mg/dL (70-105); PHOSPHORUS 1.7 mg/dL (2.5-4.9); POTASSIUM 4.8 mEq/L (3.5-5.1); SODIUM 139 mEq/L (136-145); UREA NITROGEN BLOOD 44 mg/dL (9-23)
[2023-07-03 08:00] VITALS: BP 120/66; PULSE 105; RESP 16; TEMP 98
[2023-07-03] MEDS ORDERED: MAGNESIUM 2 G PREMIX 50 ML IV SCH ×2 (09:00→10:00)
[2023-07-03] MEDS ORDERED: SODIUM PHOSPHATE 20 MMOL in DEXT 5% WATER 243.3333 ML IV SCH ×2 (09:00→11:00)
[2023-07-03 09:56] LABS: ANISOCYTOSIS 2+; MICROCYTOSIS 1+; PLATELET ESTIMATE NORMAL
[2023-07-03] MEDS: MAGNESIUM 2 G PREMIX 50 ML IV NR (10:00)
[2023-07-03] MEDS: SODIUM PHOSPHATE 15 MMOL in DEXT 5% WATER 245 ML IV NR (11:06)
[2023-07-03 12:00] VITALS: BP 114/64; PULSE 111; RESP 15; TEMP 97.3
[2023-07-03] MEDS: DILTIAZEM HCL 60MG TABLET PO SCH (15:24)
[2023-07-03 16:00] VITALS: BP 89/50; PULSE 104; RESP 15; TEMP 97
[2023-07-03] MEDS: METHYLPREDNISOLONE SOD SUCC 40MG/ML (ACT-O-VIAL) IV SCH (16:57)
[2023-07-03 20:00] VITALS: BP 102/59; PULSE 99; RESP 18; TEMP 97.9
[2023-07-04 04:00] VITALS: BP 105/63; PULSE 97; RESP 18; TEMP 97.6
[2023-07-04 07:26] LABS: HEMATOCRIT. 29.1 % (42.0-52.0); HEMOGLOBIN. 9.2 g/dL (14.0-18.0); MEAN CORPUSCULAR HEMOGLOBIN 27.2 pg (28.0-32.0); MEAN CORPUSCULAR HGB CONC 31.7 g/dL (31.0-37.0); MEAN CORPUSCULAR VOLUME 85.6 fL (80.0-94.0); MEAN PLATELET VOLUME 9.8 fl (7.4-10.4); PLATELET 297 x1000/uL (130-400); RED CELL DISTRIBUTION WIDTH 21.8 % (11.6-14.6)
[2023-07-04 07:45] LABS: DIFFERENTIAL COMMENT 1
[2023-07-04 08:00] VITALS: BP 106/64; PULSE 95; RESP 17; TEMP 98.2
[2023-07-04 08:05] LABS: CALCIUM 8.2 mg/dL (8.7-10.4); CARBON DIOXIDE 29 mEq/L (21-32); CHLORIDE 100 mEq/L (98-107); CREATININE 0.8 mg/dL (0.6-1.3); GLUCOSE 109 mg/dL (70-105); PHOSPHORUS 1.3 mg/dL (2.5-4.9); UREA NITROGEN BLOOD 44 mg/dL (9-23)
[2023-07-04 08:09] LABS: SODIUM 121 mEq/L (136-145)
[2023-07-04] MEDS: FAMOTIDINE 20MG TABLET PO SCH (08:55)
[2023-07-04 10:42] LABS: ANISOCYTOSIS 2+; PLATELET ESTIMATE NORMAL
[2023-07-04 12:00] VITALS: BP 109/56; PULSE 95; RESP 20; TEMP 97.2
[2023-07-04] MEDS: PREDNISONE 10MG TABLET PO SCH (12:36)
[2023-07-04 14:10] LABS: CALCIUM 7.7 mg/dL (8.7-10.4); CARBON DIOXIDE 27 mEq/L (21-32); CHLORIDE 104 mEq/L (98-107); CREATININE 0.8 mg/dL (0.6-1.3); GLUCOSE 111 mg/dL (70-105); POTASSIUM 4.3 mEq/L (3.5-5.1); UREA NITROGEN BLOOD 47 mg/dL (9-23)
[2023-07-04 14:17] LABS: SODIUM 138 mEq/L (136-145)
[2023-07-04] MEDS: MAGNESIUM 2 G PREMIX 50 ML IV SCH (14:57)
[2023-07-04] MEDS: SODIUM PHOSPHATE 30 MMOL in DEXT 5% WATER 500 ML IV SCH (14:59)
[2023-07-04 16:00] VITALS: BP 113/63; PULSE 102; RESP 15; TEMP 99.1
[2023-07-04 20:00] VITALS: BP 122/68; PULSE 109; RESP 18; TEMP 97.2
[2023-07-05] VITALS: PULSE 109; RESP 18; TEMP 97.2
[2023-07-05 08:00] VITALS: BP 113/62; PULSE 95; RESP 16; TEMP 98.1
[2023-07-05 12:00] VITALS: BP 105/62; PULSE 117; RESP 17; TEMP 98
[2023-07-05 16:00] VITALS: BP 97/73; PULSE 125; RESP 18; TEMP 98.1
[2023-07-05 16:50] LABS: HEMOGLOBIN. 9.4 g/dL (14.0-18.0); MEAN CORPUSCULAR HEMOGLOBIN 27.1 pg (28.0-32.0); MEAN CORPUSCULAR HGB CONC 31.4 g/dL (31.0-37.0); MEAN CORPUSCULAR VOLUME 86.3 fL (80.0-94.0); MEAN PLATELET VOLUME 9.7 fl (7.4-10.4); PLATELET 308 x1000/uL (130-400); RED BLOOD CELL COUNT 3.47 mill/uL (4.7-6.1); RED CELL DISTRIBUTION WIDTH 22.6 % (11.6-14.6); WHITE BLOOD COUNT 19.2 x1000/uL (4.5-11.0)
[2023-07-05 16:52] LABS: DIFFERENTIAL COMMENT 1
[2023-07-05 17:02] LABS: CALCIUM 7.9 mg/dL (8.7-10.4); CARBON DIOXIDE 21 mEq/L (21-32); CHLORIDE 106 mEq/L (98-107); CREATININE 0.9 mg/dL (0.6-1.3); GLUCOSE 130 mg/dL (70-105); POTASSIUM 4.4 mEq/L (3.5-5.1); SODIUM 138 mEq/L (136-145); UREA NITROGEN BLOOD 47 mg/dL (9-23)
[2023-07-05 17:05] LABS: PHOSPHORUS 0.9 mg/dL (2.5-4.9)
[2023-07-05 18:11] LABS: ANISOCYTOSIS 2+; PLATELET ESTIMATE NORMAL
[2023-07-05 20:00] VITALS: BP 109/58; PULSE 120; RESP 18; TEMP 97.6
[2023-07-05] MEDS: SODIUM PHOSPHATE 20 MMOL in DEXT 5% WATER 243.3333 ML IV NR (20:56)
[2023-07-05] MEDS: MAGNESIUM 2 G PREMIX 50 ML IV NR (21:42)
[2023-07-06 08:00] VITALS: BP 120/71; PULSE 103; RESP 18; TEMP 98
[2023-07-06] MEDS: LACTATED RINGERS 1,000 ML IV ONE (09:30)
[2023-07-06] MEDS: SODIUM PHOSPHATE 10 MMOL in DEXT 5% WATER 246.6667 ML IV NR (11:00)
[2023-07-06 12:00] VITALS: BP 104/54; PULSE 117; RESP 19; TEMP 98.9
[2023-07-06] MEDS: MAGNESIUM 2 G PREMIX 50 ML IV NR (13:29)
[2023-07-06 20:00] VITALS: BP 132/78; PULSE 112; PULSE 117; RESP 20; RESP 22; TEMP 97.6
[2023-07-07] VITALS: BP 118/75; PULSE 110; RESP 20; TEMP 98
[2023-07-07 04:00] VITALS: BP_SYST 129; BP_SYST 136; BP_DIAS 77; BP_DIAS 82; PULSE 79; RESP 22; TEMP 97.4
[2023-07-07 08:00] VITALS: BP 102/54; PULSE 105; RESP 18; TEMP 97.9
[2023-07-07 10:54] LABS: CARBON DIOXIDE 24 mEq/L (21-32); CHLORIDE 108 mEq/L (98-107); CREATININE 0.9 mg/dL (0.6-1.3); GLUCOSE 87 mg/dL (70-105); PHOSPHORUS 2.2 mg/dL (2.5-4.9); SODIUM 140 mEq/L (136-145); UREA NITROGEN BLOOD 44 mg/dL (9-23)
[2023-07-07 16:00] VITALS: BP 99/66; PULSE 110; RESP 20; TEMP 98.1
[2023-07-07 20:00] VITALS: BP 131/63; PULSE 116; RESP 20; TEMP 98.5
[2023-07-08] VITALS (7 sets, daily range): BP systolic 102–118; BP diastolic 53–66; PULSE 59–120; RESP 18–20; TEMP 97.8–99.5; O2SAT 100
[2023-07-08 09:20] LABS: HEMATOCRIT. 31.7 % (42.0-52.0); HEMOGLOBIN. 9.9 g/dL (14.0-18.0); MEAN CORPUSCULAR HEMOGLOBIN 27.9 pg (28.0-32.0); MEAN CORPUSCULAR HGB CONC 31.2 g/dL (31.0-37.0); MEAN CORPUSCULAR VOLUME 89.3 fL (80.0-94.0); MEAN PLATELET VOLUME 9.5 fl (7.4-10.4); PLATELET 258 x1000/uL (130-400); RED BLOOD CELL COUNT 3.55 mill/uL (4.7-6.1); RED CELL DISTRIBUTION WIDTH 23.7 % (11.6-14.6)
[2023-07-08 09:21] LABS: CALCIUM 7.9 mg/dL (8.7-10.4); CARBON DIOXIDE 25 mEq/L (21-32); CHLORIDE 106 mEq/L (98-107); CREATININE 0.9 mg/dL (0.6-1.3); GLUCOSE 80 mg/dL (70-105); POTASSIUM 4.9 mEq/L (3.5-5.1); SODIUM 137 mEq/L (136-145); UREA NITROGEN BLOOD 43 mg/dL (9-23)
[2023-07-08 09:35] LABS: DIFFERENTIAL COMMENT 1
[2023-07-08] MEDS: MAGNESIUM 2 G PREMIX 50 ML IV NR (12:30)
[2023-07-08] MEDS: SODIUM PHOSPHATE 15 MMOL in DEXT 5% WATER 245 ML IV NR (14:36)
[2023-07-08 22:24] LABS: ANISOCYTOSIS 2+; NUCLEATED RED BLOOD CELLS 1 /100 WBC; PLATELET ESTIMATE NORMAL
[2023-07-09] VITALS: BP_SYST 100; BP_SYST 123; BP_DIAS 52; BP_DIAS 69; PULSE 103; PULSE 119; RESP 18; RESP 20; TEMP 97.5; TEMP 98.7
[2023-07-09 04:00] VITALS: BP 101/62; PULSE 103; RESP 18; TEMP 100.4
[2023-07-09 06:37] LABS: HEMATOCRIT. 26.8 % (42.0-52.0); HEMOGLOBIN. 8.7 g/dL (14.0-18.0); MEAN CORPUSCULAR HEMOGLOBIN 27.9 pg (28.0-32.0); MEAN CORPUSCULAR HGB CONC 32.5 g/dL (31.0-37.0); MEAN CORPUSCULAR VOLUME 85.7 fL (80.0-94.0); MEAN PLATELET VOLUME 9.2 fl (7.4-10.4); PLATELET 203 x1000/uL (130-400); RED BLOOD CELL COUNT 3.13 mill/uL (4.7-6.1); RED CELL DISTRIBUTION WIDTH 22.9 % (11.6-14.6); WHITE BLOOD COUNT 11.4 x1000/uL (4.5-11.0)
[2023-07-09 06:48] LABS: CALCIUM 8.2 mg/dL (8.7-10.4); CARBON DIOXIDE 26 mEq/L (21-32); CHLORIDE 106 mEq/L (98-107); CREATININE 0.8 mg/dL (0.6-1.3); GLUCOSE 89 mg/dL (70-105); POTASSIUM 3.8 mEq/L (3.5-5.1); SODIUM 139 mEq/L (136-145); UREA NITROGEN BLOOD 55 mg/dL (9-23)
[2023-07-09 07:47] LABS: DIFFERENTIAL COMMENT 1
[2023-07-09] MEDS: PREDNISONE 10MG TABLET PO SCH (08:41)
[2023-07-09] MEDS ORDERED: QUET50TA PO (10:28)
[2023-07-09 10:51] LABS: PLATELET ESTIMATE NORMAL
[2023-07-09 10:52] LABS: ANISOCYTOSIS 2+
[2023-07-09 12:00] VITALS: BP 111/67; PULSE 114; RESP 20; TEMP 97.9
== END 2023-07-09 15:49 | disposition home or self-care (01) | DRG 720 ==
LOC: ER 17:14 → EDBEDREQ 20:08 → MICUSO 21:36 → EDBEDREQSVC 21:40 → 7EST 06-27 09:30 → 8WST 06-30 18:10 → 7EST 07-02 08:23 → 6EST 07-07 12:11
PROVIDERS: ADMIT Internal Medicine; ATTEND Internal Medicine
PROC: 5A1955Z Respiratory Ventilation, Greater than 96 Consecutive Hours (ICD-10-PCS; principal; 2023-06-19)
PROC: 0BH17EZ Insertion of Endotracheal Airway into Trachea, Via Natural or Artificial Opening (ICD-10-PCS; 2023-06-19)
PROC: 5A09357 Assistance with Respiratory Ventilation, Less than 24 Consecutive Hours, Continuous Positive Airway Pressure (ICD-10-PCS; 2023-06-19)
PROC: 30233N1 Transfusion of Nonautologous Red Blood Cells into Peripheral Vein, Percutaneous Approach (ICD-10-PCS; 2023-06-22)
DX: A41.9 Sepsis, unspecified organism (principal); N17.0 Acute kidney failure with tubular necrosis; J80 Acute respiratory distress syndrome; R65.21 Severe sepsis with septic shock; G82.50 Quadriplegia, unspecified; L89.153 Pressure ulcer of sacral region, stage 3; E44.0 Moderate protein-calorie malnutrition; G93.41 Metabolic encephalopathy; J18.9 Pneumonia, unspecified organism; Z59.00 Homelessness unspecified; M85.80 Other specified disorders of bone density and structure, unspecified site; N39.0 Urinary tract infection, site not specified; R65.20 Severe sepsis without septic shock; D64.9 Anemia, unspecified; Z20.822 Contact with and (suspected) exposure to COVID-19; D75.89 Other specified diseases of blood and blood-forming organs; E83.39 Other disorders of phosphorus metabolism; T38.0X5A Adverse effect of glucocorticoids and synthetic analogues, initial encounter; M20.42 Other hammer toe(s) (acquired), left foot; M20.41 Other hammer toe(s) (acquired), right foot; X58.XXXA Exposure to other specified factors, initial encounter; Z68.30 Body mass index [BMI] 30.0-30.9, adult; E83.42 Hypomagnesemia; R53.81 Other malaise; E87.1 Hypo-osmolality and hyponatremia; N13.9 Obstructive and reflux uropathy, unspecified; H53.8 Other visual disturbances; J90 Pleural effusion, not elsewhere classified; R73.9 Hyperglycemia, unspecified; Z74.01 Bed confinement status; Z59.02 Unsheltered homelessness; Z88.0 Allergy status to penicillin
CPT/HCPCS: 31500; 36415; 36600; 71045; 74176; 76770; 80048; 80053; 80202; 80305; 81003; 82040; 82270; 82375; 82550; 82607; 82728; 82746; 82805; 82962; 83540; 83550; 83605; 83735; 83880; 84100; 84134; 84145; 84478; 84484; 85014; 85018; 85025; 85044; 86850; 86900; 86920; 87070; 87426; 87804; 92610; 93005; 94002; 94003; 94640; 94644; 94660; 97116; 97162; 97166; 97530; 97535; 99291; C9113; J1956; J2185; J2704; J2920; J2930; J3010; J3370; J3475; J3490; J7030; J7050; J7060; J7070; J7512; J7608; P9016; A4315